=== PATIENT | female | born 1975 | race Caucasian/White ===

== ENCOUNTER 2024-06-19 09:50 | Outpatient (REF) | payer MEDICAID, SELFPAY ==
--- OUTSIDE RECORDS SUMMARY | 2024-06-19 10:37 | XMS_ITS | Encounter Summary ---
Author Organization [employer] Address [address] [facility] 7[address] [place] [address] Care Team Providers Care Software Quality Automation Engineer Name Role Phone Unavailable Primary Care Provider Unavailabl e Encounter Details Date Type Department Care Team (Latest Contact Info) Description 06/18/2024 Travel Social History Tobacco Use Types Packs/Day Years Used Date Smoking Tobacco: Never Assessed Housing Stability Answer Date Recorded What is your housing situation today? I have joanie benton 06/11/[address] you li ve. Do you have problems with any of the following? None of the above 06/11/2024 Food Insecurity Answer Date Recorded Within the past 12 months, y ou worried that your food would run out before you got money to buy more: Never True 06/11/2024 Within the past 12 months,th e food you bought just didn't last and you didn't have enough money to get more: Never True 07/2024 Transportation Answer Date Recorded In the past 12 months, has l ack of transportation kept you from medical appts, meetings, work or from getting things needed for daily living? No 06/11/2024 Utilities Answer Date Recorded In the past 12 months, has t he electric, gas, oil or water company threatened to shut off services in your home? No 06/11/2024 Internet Access Answer Date Recorded Internet Access Q1 Yes 06/11/2024 Internet Access Q2 Not on file 06/11/2024 Comments Unknown Sex and Gender Information Value Date Recorded Sex Assigned at Female 12/06/2021 10:21 AM EDT Legal Sex Female 10:21 AM EDT Gender Identity Female 06/18/2024 9:38 AM EDT Sexual Orientation Don't know 06/18/2024 9: 38 AM EDT documented as of this encounter Plan of Treatment Not on file documented as of this encounter Visit Diagnoses Not on filedocumented in this encounter
--- OUTSIDE RECORDS SUMMARY | 2024-06-19 10:37 | XMS_ITS | Encounter Summary ---
Author Organization [employer] Address [address] [facility] 7[address] [place] [address] Care Team Providers Care Video Player Mechanic Name Role Phone Judy Darby MD Primary Care Provider [phone] Encounter Details Date Type Department Care Team (Latest Contact Info) Description 06/19/2024 Travel Social History Tobacco Use Types Packs/Day Years Used Date Smoking Tobacco: Never Smokeless Tobacco: Never Alcohol Use Standard Drinks/Week Comments Never 0 (1 standard drink = 0.6 oz pur e alcohol) Housing Stability Answer Date Recorded What is [...] Diagnoses Not on filedocumented in this encounter Care Teams Video Player Mechanic Relationship Specialty Start Date End Date Judy Darby MD [address] [place] [id number] PCP - General Family Medicine 06/19/24 documented as of this encounter
--- OUTSIDE RECORDS SUMMARY | 2024-06-19 10:37 | XMS_ITS | Encounter Summary ---
Author Organization Formerly [facility] Address [address] [place] [address] Care Team Providers Care Hydraulic Pile Hammer Operator Name Role Phone Unavailable Primary Care Provider Unavailabl e Encounter Details Date Type Department Care Team (Latest Contact Info) Description 01/29/[facility] [address] [place] [address] [address] [place] [address] Trung Guzman PA-C [address] [place] [address] [id number] Encounter for laboratory testing for COVID-19 virus Social History Tobacco Use Types Packs/Day Years Used Date Smoking Tobacco: Never Assessed Comments Unknown Sex and Gender Information Value Date Recorded Sex Assigned at Not on file Legal Sex Female 12:14 PM EST Gender Identity Not on file Sexual Orientation Not on file documented as of this encounter Plan of Treatment Not on file documented as of this encounter Procedures Procedure Name Priority Date/Time Associated Diagnosis Comments COVID-19 (SARS-COV-2) - [facility] Routine 01/29/2020 12:16 PM EST Encounter for laboratory testing for COVID-19 virus [ICD-10-CM] documented in this encounter Results * (ABNORMAL) COVID-19 (SARS-COV-2) ([facility]) (01/29/2020 12:16 PM EST) COVID-19 RT-PCR DETECTED( A) Not-Detec maeve 02/02/2020 1:43 PM EST [facility] Comment:Interpretation: The viral RNA was detected, consistent with the diagnosis of COVID-19. Correlation with clinical findings is highly recommended.Final report signed by Sky Urban, Ph.D., [facility], Laboratory DirectorTests performed at [facility] Nasopharyngeal swab / Unknown 01/29/2020 12:16 PM EST 01/29/2020 12:16 PM EST Narrative KAYLEIGHDami ROSEANNE DÍAZCLAUDY - 02/02/2020 1:43 PM EST Performed by [facility] [address] [place] [address], CLIA# [id number] and [place] License# [id number] Trung Guzman PA-C MICROBIOLOGY - GENERAL OR DERABLES Final Result ESMER ROSEANNE Mookie RODRIGUEZ documented in this encounter Visit Diagnoses Diagnosis Encounter for laboratory testing for COVID-19 virus documented in this encounter
--- OUTSIDE RECORDS SUMMARY | 2024-06-19 10:37 | XMS_ITS | Clinical Summary ---
Author Organization [employer] Address [address] [facility] 7t [place] [address] Care Team Providers Care Relay Shop Supervisor Name Role Phone Judy Darby MD Primary Care Provider [phone] Allergies No known active allergies Medications Tylenol 325 MG tablet Take 975 mg by mouth. 5 Active Eliquis 5 MG tablet Take 1 tablet by mouth 2 times daily. 5 Active ibuprofen (IBU) 800 MG tablet Take 1 tablet by mouth every 8 (eight) hours. 5 Active cholecalcifero l (KP Vitamin D) 25 MCG (1000 UT) capsule Take 1 capsule by mouth Once per day. 5 06/20/19 25 Discontinued venlafaxine XR (Effexor XR) 37.5 MG 24 hr capsule Take 1 capsule by mouth Once per day. 5 06/20/19 25 Discontinued Active Problems Problem Noted Date Diagnosed Date Malignant neoplasm of both ovaries 06/19/2024 Malignant neoplasm of body of uterus 06/19/2024 Resolved Problems Problem Noted Date Diagnosed Date Resolved Date Cancer 06/19/2024 Encounters Date Type Department Care Team Description 06/19/2024 9:00 AM EDT Office Visit [facility] [address] [place] [address] Judy Darby MD Malignant neoplasm of both ovaries (CMS/HCC) (Primary Dx); Malignant neoplasm of body of uterus, unspecified site (CMS/HCC); Encounter for screening mammogram for breast cancer; Encounter for screening for malignant neoplasm of colon; Encounter for immunization 06/19/2024 Travel 06/18/2024 Travel 06/11/2024 Patient Outreach [facility] [address] [place] [address] Judy Darby MD Pre-visit Planning (SDOH screening negative and Tobacco screening negative) 04/19/2024 Population Health Risk Score [facility] [address] [place] [phone] Provider, Population Health Generic from Last 3 Months Immunizations Immunization Administration Dates Next Due Tdap 06/19/2024 Social History Tobacco Use Types Packs/Day Years Used Date Smoking Tobacco: Never Smokeless Tobacco: Never Tobacco Cessation:Counseling Given: Not Answered Alcohol Use Standard Drinks/Week Comments Never 0 [...] Don't know 06/18/2024 9: 38 AM EDT Last Filed Vital Signs Vital Sign Reading Time Taken Comments Blood Pressure 132/78 06/19/2024 9:13 AM EDT Pulse 84 06/19/2024 9:13 AM EDT Temperature 37.1 ??C (98.7 ??F) 06/19/2024 9:13 AM ED T Respiratory Rate 20 06/19/2024 9:13 AM EDT Oxygen Saturation - - Inhaled Oxygen Concentration - - Weight 83 kg (183 lb) 06/19/2024 9:13 AM EDT Height 162.6 cm (5' 4 ) 06/19/2024 9:13 AM EDT Body Mass Index 31.41 06/19/2024 9:13 AM EDT Plan of Treatment Health Maintenance Due Date Last Done Comments CT Colonography 1973 Colonoscopy 1973 Colorectal Cancer Screening 1973 Depression Screening 1973 FIT DNA/Cologuard 1973 FIT 1973 FOBT 1973 HIV Screening 1973 Lipid Panel 1973 Sigmoidoscopy 1973 Alcohol/Substance Use Screening 1985 Family Planning (PISQ) 1988 Hepatitis C Screening 04/25/1991 Hepatitis B Vaccines (1 of 3 - 19+ 3-dose series) 1992 Mammogram 2013 Pneumococcal Vaccine: 50+ Years (1 of 1 - PCV) 04/25/2023 Zoster Vaccines (1 of 2) 04/25/2023 COVID-19 Vaccine (4 - season) 2023 04/30/2021, 06/08/2020, 05/18/2020 Influenza Vaccine (#1) 2023 , 11/05/2014, 12/06/2012, Additional history exists SDOH Screening 06/11/2025 06/11/2024 Tobacco Screening 06/19/2025 06/19/2024 DTaP/Tdap/Td Vaccines (2 - Td or Tdap) 06/19/2034 06/19/2024, 10/02/2000 RSV Patients and Patients Aged 60 years or older (1 - 1-dose 75+ series) 2048 HIB Vaccines Aged Out No longer eligi ble based on patient's age to complete this topic HPV Vaccines Aged Out No longer eligi ble based on patient's age to complete this topic Hepatitis A Vaccines Aged Out No long er eligible based on patient's age to complete this topic IPV Vaccines Aged Out No longer eligi ble based on patient's age to complete this topic Meningococcal B Vaccine Aged Out No l onger eligible based on patient's age to complete this topic Meningococcal Vaccine Aged Out No miquel carole eligible based on patient's age to complete this topic RSV under 20 months Aged Out No longe r eligible based on patient's age to complete this topic Rotavirus Vaccines Aged Out No longer eligible based on patient's age to complete this topic Insurance [employer] C3 Care Teams Relay Shop Supervisor Relationship Specialty Start Date End Date Judy Darby MD [address] [place] [phone] PCP - General Family Medicine 06/19/24
--- OUTSIDE RECORDS SUMMARY | 2024-06-19 10:37 | XMS_ITS | Clinical Summary ---
Author Organization Formerly [facility] Address [address] [place] [address] Care Team Providers Care Generator Repairer Name Role Phone Unavailable Primary Care Provider Unavailabl e Social History Tobacco Use Types Packs/Day Years Used Date Smoking Tobacco: Never Assessed Comments Unknown Sex and Gender Information Value Date Recorded Sex Assigned at Not on file Legal Sex Female 12:14 PM EST Gender Identity Not on file Sexual Orientation Not on file Plan of Treatment Health Maintenance Due Date Last Done Comments Hepatitis C Virus Screening 1973 HIV Screening 1986 DTaP/Tdap/Td Vaccines (1 - Tdap) 1992 Hepatitis B Vaccines (1 of 3 - 19+ 3-dose series) 04/06 Pneumococcal Vaccines 50+ (1 of 1 - PCV) 04/25/2023 Zoster (Shingles) Vaccine (1 of 2) 04/25/2023 COVID-19 Vaccine ( - 2023-25 season) 2023
--- OUTSIDE RECORDS SUMMARY | 2024-06-19 10:37 | XMS_ITS | Encounter Summary ---
Author Organization [employer] Address [address] [facility] 7t [place] [address] Care Team Providers Care Pastoral Ministries Professor Name Role Phone Judy Darby MD Primary Care Provider [phone] Reason for Referral * Imaging (Routine) - Closed Specialty Diagnoses / Procedures Referred By Sharif lomax Referred To Contact Radiology Diagnoses Encounter for screening mammogram for breast cancer Procedures BI Mammogram Screening Tomosynthesis Bilateral Judy Darby MD [address] [place] [address] Phone: tel: fax: [facility] Referral ID Status Reason Start Date Expiration Date Visits Re quested Visits Authorized [id number] Closed 06/19/2024 06/19/2025 1 1 * Consultation (Urgent) - Authorized Specialty Diagnoses / Procedures Referred By Sharif lomax Referred To Contact Gastroenterology Diagnoses Encounter for screening for malignant neoplasm of colon Judy Darby MD [address] [place] [address] Phone: tel: fax: [facility] [address] [place], [place] Phone: tel: fax: Referral ID Status Reason Start Date Expiration Date Visits Requested Visits Authorized [id number] Authorized Specialty Services Required 06/19/2024 06/19/2025 1 1 Encounter Details Date Type Department Care Team (Late st Contact Info) Description 06/19/2024 9:00 AM EDT Office Visit [facility] [address] [place] [address] Judy aDrby MD [address] [place] [address] Malignant neoplasm of both ovaries (CMS/HCC) (Primary Dx); Malignant neoplasm of body of uterus, unspecified site (CMS/HCC); Encounter for screening mammogram for breast cancer; Encounter for screening for malignant neoplasm of colon; Encounter for immunization Social History Tobacco Use Types Packs/Day Years [...] the past 12 months, has t he [employer], gas, oil or water [employer] threatened to shut off services in your [...] AM EDT documented as of this encounter Last Filed Vital Signs Vital Sign Reading [...] Mass Index 31.41 06/19/2024 9:13 AM EDT documented in this encounter Progress Notes * Judy Darby MD - 06/19/2024 9:00 AM EDT Subjective Patient ID: Nishi Reilly is a 49 y.o. female who presents for No chief complaint on file.. Is here for FIRE INVESTIGATOR appt She is under going chemo for Ovarian and Uterine CA Review of Systems Constitutional: Negative. Respiratory: Negative. Negative for shortness of breath. Cardiovascular: Negative for chest pain and palpitations. Gastrointestinal: Negative. Genitourinary: Negative. Musculoskeletal: Negative for neck pain. Neurological: Negative for headaches. Objective Physical Exam Constitutional: Appearance: Normal appearance. Cardiovascular: Rate and Rhythm: Normal rate and regular rhythm. Pulses: Normal pulses. Heart sounds: Normal heart sounds. Pulmonary: Effort: Pulmonary effort is normal. Abdominal: General: Abdomen is flat. Neurological: Mental Status: She is alert. Assessment/Plan Diagnoses and all orders for this visit: Malignant neoplasm of both ovaries (CMS/HCC) Comments: Follows with and oncologist She is recieving chemo every 3 weeks Cont Zofran as needed Orders: - Basic Metabolic Panel; Future - Lipid Panel, Standard; Future - Hepatic Function Panel; Future Malignant neoplasm of body of uterus, unspecified site (CMS/HCC) - Basic Metabolic Panel; Future - Lipid Panel, Standard; Future - Hepatic Function Panel; Future Encounter for screening mammogram for breast cancer - BI Mammogram Screening Tomosynthesis Bilateral; Future Encounter for screening for malignant neoplasm of colon - Referral to Gastroenterology; Future Encounter for immunization - TDAP VACCINE 7 yrs + documented in this encounter Plan of Treatment Scheduled Orders Name Type Priority Associated Diagnoses Orde r Schedule BI Mammogram Screening Tomosynthesis Bilateral Imaging Routine Encounter for screening mammogram for breast cancer Expected: 06/19/2024, Expires: 08/19/2025 Basic Metabolic Panel Lab Routine Malignant neoplasm of both ovaries (CMS/HCC) Malignant neoplasm of body of uterus, unspecified site (CMS/HCC) Expected: 06/19/2024 (Approximate), Expires: 06/19/2025 Lipid Panel, Standard Lab Routine Malignant neoplasm of both ovaries (CMS/HCC) Malignant neoplasm of body of uterus, unspecified site (CMS/HCC) Expected: 06/19/2024 (Approximate), Expires: 06/19/2025 Hepatic Function Panel Lab Routine Malignant neoplasm of both ovaries (CMS/HCC) Malignant neoplasm of body of uterus, unspecified site (CMS/HCC) Expected: 06/19/2024 (Approximate), Expires: 06/19/2025 Scheduled Referrals Name Type Priority Associated Diagnoses Order Schedule Referral to Gastroenterology Outpatient Referral Urgent Encounter for screening for malignant neoplasm of colon Expected: 06/19/2024 (Approximate), Expires: 06/19/2025 documented as of this encounter Visit Diagnoses Diagnosis Malignant neoplasm of both ovaries (CMS/HCC)- Primary Malignant neoplasm of body of uterus, unspecified site (CMS/HCC) Encounter for screening mammogram for breast cancer Encounter for screening for malignant neoplasm of colon Encounter for immunization documented in this encounter Care Teams Pastoral Ministries Professor Relationship Specialty Start Date End Date Judy Darby MD [address] [place] [id number] PCP - General Family Medicine 06/19/24 documented as of this encounter
[2024-06-19 15:29] LABS: Alanine Aminotransferase 38 U/L (0-31); Anion Gap 13 (12-20); Aspartate Amino Transferase 33 U/L (5-31); Bilirubin Direct < 0.2 mg/dL (0.0-0.5); Bilirubin Total 0.1 mg/dL (0.0-1.0); Blood Urea Nitrogen 18 mg/dL (9-16); Calcium 9.6 mg/dL (8.4-10.2); Carbon Dioxide 24 mmol/L (22-29); Chloride 107 mmol/L (96-108); Cholesterol 244 mg/dL (<200); Estimated Glomerular Filt Rate > 60; Glucose Random 92 mg/dL (60-115); HDL Cholesterol 59 mg/dL (>40); LDL Cholesterol Calculated 161 mg/dL (<100); Potassium 3.9 mmol/L (3.3-5.1); Sodium 140 mmol/L (135-145); Triglycerides 120 mg/dL (<150)
[2024-06-19 16:51] LABS: Alkaline Phosphatase 79 U/L (39-117)
== END 2024-06-19 09:51 | disposition home or self-care (01) ==
LOC: HO.CHCLDS 09:50
PROVIDERS: Visit Provider Student in an Organized Health Care Education/Training Program
DX: C56.3 Malignant neoplasm of bilateral ovaries (principal); C54.9 Malignant neoplasm of corpus uteri, unspecified
CPT/HCPCS: 36415; 80048; 80061; 80076